=== PATIENT | female | born 1960 | race Hispanic/Latino ===

== ENCOUNTER 2024-02-17 08:46 | Emergency (ER) | payer OTHER ==
[~2024-02-17] VITALS: Ht 157.5 cm; Wt 68.0 kg
[2024-02-17] MEDS: CLINDAMYCIN IVPB 600MG/50ML 50 ML IV SCH (10:27)
[2024-02-17] MEDS: 0.9%NACL 1000ML 1,000 ML IV ONE (10:28)
[2024-02-17] MEDS: KETOROLAC 30MG VIAL (30MG/ML) IVP ONE (10:28)
[2024-02-17 10:33] LABS: BASOPHILS # (AUTO) 0.03 K/uL (0.00-0.20); BASOPHILS % (AUTO) 0.3 % (0.0-5.0); EOSINOPHILS # (AUTO) 0.03 K/uL (0.00-0.70); EOSINOPHILS % (AUTO) 0.3 % (0.0-8.0); HEMATOCRIT 43.1 % (36-48); IMMATURE GRANULOCYTE ABSOLUTE 0.03 K/uL (0-1); LYMPHOCYTES # (AUTO) 1.5 K/uL (1.0-4.8); MEAN CORPUSCULAR HEMOGLOBIN 28.5 pg (27.0-33.0); MEAN CORPUSCULAR HGB CONC 32.5 g/dL (32.0-36.0); MEAN CORPUSCULAR VOLUME 87.8 fL (79-99); MONOCYTES # (AUTO) 1.1 K/uL (0.1-1.0); MONOCYTES % (AUTO) 10.4 % (3.0-13.0); NEUTROPHILS # (AUTO) 7.8 K/uL (1.8-7.7); NEUTROPHILS % (AUTO) 74.7 % (40.0-77.0); PLATELET COUNT (AUTO) 267 K/uL (130-400); RED BLOOD CELL COUNT(AUTO) 4.91 MIL/uL (4.00-5.50); RED CELL DISTRIBUTION WIDTH 14.6 % (11.0-15.5); WHITE BLOOD COUNT (AUTO) 10.5 K/uL (4.8-10.8)
[2024-02-17 10:45] LABS: CREATININE 0.6 mg/dL (0.5-1.0); POTASSIUM 3.4 mmol/L (3.5-5.1)
[2024-02-17] MEDS ORDERED: IOHEXOL 350 MG/ML 100ML INFUS..BTL IV ONE (10:49)
[2024-02-17 10:50] LABS: ALBUMIN 3.7 g/dL (3.5-5.0); BILIRUBIN,TOTAL 0.5 mg/dL (0.2-1.0); TOTAL PROTEIN, SERUM 7.5 g/dL (6.0-8.3)
[2024-02-17] MEDS ORDERED: IBUP-2077 PO (12:00)
[2024-02-17] MEDS ORDERED: CLIN-141 PO (12:00)
[2024-02-17 12:05] VITALS: BP 132/81; PULSE 92; RESP 18; O2SAT 98
== END 2024-02-17 12:11 | disposition home or self-care (01) ==
LOC: EDH 08:46
DX: K02.9 Dental caries, unspecified (principal); R22.0 Localized swelling, mass and lump, head; K08.89 Other specified disorders of teeth and supporting structures; I10 Essential (primary) hypertension; Z90.49 Acquired absence of other specified parts of digestive tract; Z90.710 Acquired absence of both cervix and uterus
CPT/HCPCS: 99285; 96365; 70487; 96375; 80053; 85025; 87040 ×2; 83605; 36415; J1885; J3490; Q9967

== ENCOUNTER → 2024-08-14 | Outpatient (CLI) | payer OTHER ==
[~2024-08-14] MED LIST: CLIN-141 PO; IBUP-2077 PO
--- NOTE | 2024-08-14 16:52 | HMCIMG ---
NM BONE SCAN 3 PHASE REASON: [facility] compl of internal Left knee prosthesis. COMPARISON: None TECHNIQUE: 3 phase bone scan was performed with specific attention given to the bilateral knees areas. Patient was given 25 mCi of technetium MDP through intravenous route. 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 No asymmetric abnormal increased activities are seen. Increased activities are seen in the shoulders, knees and ankles bilaterally consistent with degenerative changes. There is mild scoliosis. IMPRESSION: No abnormal activities are seen of bilateral knees.
== END | disposition home or self-care (01) ==
LOC: RAH 12:15
PROVIDERS: ATTEND Orthopaedic Surgery Pediatric Orthopaedic Surgery
DX: T84.093A Other mechanical complication of internal left knee prosthesis, initial encounter (principal); T84.54XA Infection and inflammatory reaction due to internal left knee prosthesis, initial encounter; M25.562 Pain in left knee; M41.9 Scoliosis, unspecified; Z96.652 Presence of left artificial knee joint; Y83.8 Other surgical procedures as the cause of abnormal reaction of the patient, or of later complication, without mention of misadventure at the time of the procedure; Y92.89 Other specified places as the place of occurrence of the external cause
CPT/HCPCS: 78315; A9503

== ENCOUNTER 2025-05-20 07:20 | Day surgery (SDC) | payer OTHER ==
[2025-05-20] VITALS (11 sets, daily range): BP systolic 102–149; BP diastolic 60–96; PULSE 81–109; RESP 14–18; TEMP 97.2–98.2
[~2025-05-20] VITALS: Ht 157.5 cm; Wt 49.9 kg
[2025-05-20] MEDS ORDERED: SIMV-43 PO (08:07)
[2025-05-20] MEDS ORDERED: AMLO-259 PO (08:07)
[2025-05-20] MEDS ORDERED: MELO-106 PO (08:07)
[2025-05-20] MEDS ORDERED: LEVO100C5 PO (08:07)
[2025-05-20] MEDS ORDERED: LANS30CA55 PO (08:07)
[2025-05-20] MEDS ORDERED: DULO60CA64 PO (08:07)
[2025-05-20] MEDS: 0.9%NACL 1000ML 1,000 ML IV ONE (08:10)
[2025-05-20] MEDS ORDERED: SIMETHICONE 40 MG/0.6 ML ML ONE (10:40)
== END 2025-05-20 11:55 | disposition home or self-care (01) ==
LOC: ENDO 07:20 → DAH 07:20 → ENDO 11:55
PROVIDERS: ATTEND Internal Medicine Gastroenterology
DX: K59.00 Constipation, unspecified (principal); D12.2 Benign neoplasm of ascending colon; D12.3 Benign neoplasm of transverse colon; K57.30 Diverticulosis of large intestine without perforation or abscess without bleeding; K21.9 Gastro-esophageal reflux disease without esophagitis; E03.9 Hypothyroidism, unspecified; K44.9 Diaphragmatic hernia without obstruction or gangrene; I10 Essential (primary) hypertension; F32.A Depression, unspecified; Z90.710 Acquired absence of both cervix and uterus; Z80.0 Family history of malignant neoplasm of digestive organs; Z79.899 Other long term (current) drug therapy
CPT/HCPCS: 45380; J7030; J2704; A4620; A4215; J3490